=== PATIENT | female | born 1990 | race Caucasian/White ===

== ENCOUNTER 2018-07-28 06:04 | Day surgery (SDC) | payer OTHER ==
[2018-07-28] MEDS ORDERED: MIDAZOLAM 1 MG/ML 2 ML INJ ×2 (09:01)
[2018-07-28] MEDS ORDERED: FENTAnyl 50 MCG/ML VIAL (09:01)
== END 2018-07-28 11:06 | disposition home or self-care (01) ==
LOC: GIL 06:04
DX: K21.9 Gastro-esophageal reflux disease without esophagitis (principal); K29.70 Gastritis, unspecified, without bleeding
CPT/HCPCS: 43239; 84703; 88305